=== PATIENT | male | born 1965 | race Caucasian/White ===

== ENCOUNTER 2023-01-19 11:38 | Emergency (ER) | payer OTHER, SELFPAY ==
--- NOTE | ~2023-01-19 | CT_ITS ---
EXAMINATION: CT ABDOMEN AND PELVIS WITH CONTRAST CLINICAL INFORMATION: Lower abdominal TTP > right lower quadrant. COMPARISON: None available. TECHNIQUE: Multidetector volumetric images were obtained from the superior aspect of the liver through the pubic symphysis following administration 85 mL of Omnipaque 350 intravenous contrast. Sagittal and coronal reformatted images were obtained on the technologist's workstation. Oral Contrast: No. This CT examination was performed using dose optimization techniques as appropriate, variously including the following: *Automated exposure control. *Adjustment of mA and/or kV according to patient size (this includes techniques or standardized protocols for targeted exams where dose is matched to indication/reason for exam; i.e. extremities or head). *Use of iterative reconstruction technique. DLP: 625 mGy-cm FINDINGS: LUNG BASES: Minimal dependent atelectasis. Calcific atherosclerosis is noted in the coronary arteries. LIVER, GALLBLADDER, AND BILIARY TREE: The liver is normal in size, shape, and attenuation. No focal hepatic lesion or biliary ductal dilatation is present. The gallbladder is unremarkable with no evidence of radiopaque gallstones, gallbladder wall thickening, or obvious pericholecystic inflammatory changes. PANCREAS: Unremarkable. SPLEEN: Unremarkable. ADRENAL GLANDS: Unremarkable. KIDNEYS AND URETERS: The kidneys are normal in size, shape, and attenuation. No hydronephrosis, hydroureter, or calculi seen. No perinephric stranding. Multiple bilateral renal cysts are noted, measuring up to lower pole of the left kidney with an attenuation value of 2 Hounsfield units. No suspicious renal lesions are identified. BLADDER: Bladder wall is thickened diffusely. No calcifications. GASTROINTESTINAL TRACT: Stomach, small bowel, and colon are normal in caliber. No bowel wall thickening or surrounding inflammatory changes. Appendix is normal. No intraperitoneal free fluid or free air. ABDOMINAL WALL: There is a small amount of fluid in the left inguinal canal with surrounding fat stranding, extending along the left vas deferens to the level of the bladder. No appreciable inguinal or femoral hernia. There is a small fat-containing ventral abdominal incisional hernia in the supraumbilical region without bowel involvement. LYMPH NODES: Normal. VASCULAR: Unremarkable. PELVIC VISCERA: Prostate gland is diminutive, likely surgically absent. An implantable reservoir is present in the anterior aspect of the lower pelvis, extending distally along the right inguinal canal, potentially corresponding to a penile pump. OSSEOUS STRUCTURES: Bilateral L5 pars defects with grade 1 anterolisthesis of L4 on L5 and [id number] degenerative disc disease. More mild degenerative disc disease in the lower thoracic spine. Mild osteoarthritis in the hips. CT/CT abdomen pelvis w IV con IMPRESSION: 1. Normal appendix. 2. Small amount of fluid in the left inguinal canal with surrounding fat stranding. This is of uncertain etiology, though could correspond to an inflammatory or infectious process. No appreciable inguinal or femoral hernia. 3. Diffuse bladder wall thickening. Consider correlation with urinalysis. 4. Bilateral L5 pars defects with grade 1 anterolisthesis of L5 on S1. 5. Small fat-containing ventral abdominal incisional hernia. Fleischner guidelines were followed.
[2023-01-19 12:26] VITALS: BP 135/85; PULSE 75; RESP 18; TEMP 36.6; O2SAT 98; BMI 32.1
--- NOTE | 2023-01-19 12:26 | ED_ITS ---
HPI - Abdominal Pain General Chief Complaint: Abdominal Pain <QASIM Vazquez - Last Filed: 01/19/23 12:30> Stated Complaint: Low Abdominal Pain <QASIM Vazquez - Last Filed: 01/19/23 12:30> Time Seen by Provider: 01/19/23 18:16 <QASIM Vazquez - Last Filed: 01/19/23 12:30> Source: patient <Radha Ashley MD - Last Filed: 01/19/23 20:43> Mode of arrival: ambulatory <Radha Ashley MD - Last Filed: 01/19/23 20:43> History of Present Illness HPI narrative: 57-year-old male who presents with lower abdominal discomfort the location of his hernia repair that he underwent in November 26 of this year. He denies any associated difficulty with urination, denies any fevers or chills, nausea or vomiting and denies any obstipation. This discomfort has been ongoing for 2 months. He denies any unexplained weight loss. <Radha Ashley MD - Last Filed: 01/19/23 20:43> Related Data Allergies/Adverse Reactions: Allergies Allergy/AdvReac Type Severity Reaction Status Date / Time No Known Allergies Allergy Verified 01/19/23 12:29 <QASIM Vazquez - Last Filed: 01/19/23 12:30> Review of Systems Review of Systems Pertinent positives and negatives as stated in HPI <Radha Ashley MD - Last Filed: 01/19/23 20:43> PMFSH Past Medical History Source: nursing notes reviewed <Radha Ashley MD - Last Filed: 01/19/23 20:43> Social History Social History: Social History Alcohol intake: never Smoked in Last 30 Days: No Use of substances other than those prescribed or required for medical reasons: No Advance Directives: No Advance Directives Information Provided: No <QASIM Vazquez - Last Filed: 01/19/23 12:30> Physical Exam ED Vital Signs: Vital Signs - 24 hr 01/19/23 12:26 01/19/23 18:19 Temperature 97.8 F Pulse Rate 75 67 Respiratory Rate 18 16 Blood Pressure 135/85 157/88 H Pulse Oximetry 98 99 Oxygen Delivery Method Room Air Room Air BMI result Body Mass Index 32.1 <QASIM Vazquez - Last Filed: 01/19/23 12:30> Vital Signs - 24 hr 01/19/23 12:26 01/19/23 18:19 Temperature 97.8 F Pulse Rate 75 67 Respiratory Rate 18 16 Blood Pressure 135/85 157/88 H Pulse Oximetry 98 99 Oxygen Delivery Method Room Air Room Air BMI result Body Mass Index 32.1 VITAL SIGNS: Reviewed. GENERAL: Well developed, well nourished, in no acute distress. HEAD: Normocephalic/atraumatic EYES: PERRLA, EOMI LUNGS: Normal breath sounds. No adventitious sounds or accessory muscle use. SpO2<99> CARDIOVASCULAR: Regular rate and rhythm without noted murmurs ABDOMEN: Soft, non-tender, non-distended with bowel sounds, there is no abnormal mass noted, incision appears to be completely healed without evidence of marian thema or induration, no over riding fluctuance to suggest a seroma. MUSCULOSKELETAL: No tenderness, deformities, or effusions noted on gross inspection. EXTREMITIES: No cyanosis, clubbing or edema. SKIN: Inspection of the skin reveals no rashes NEUROLOGIC: Alert and oriented x 4. Strength and sensation to light touch were grossly intact x 4. <Radha Ashley MD - Last Filed: 01/19/23 20:43> Course Course Course Narrative: RME: 57yo M w/PMHx prostate CA, A.fib, triple bypass, c/o lower abdominal pain radiating to b/l testicles and low back x3 mos. Admits pain has been worsening. Denies fever, N/V/D Abdomen soft w/lower ttp >RLQ. Labs, UA, CT/AP ordered Full HPI, ROS and PE to be performed by primary ED provider. <QASIM Vazquez - Last Filed: 01/19/23 12:30> Medical Decision Making Medical Decision Making MDM Narrative: 57-year-old male who presents with 2 months of lower abdominal discomfort without infectious/obstructive symptoms. No explained weight loss but he does have a remote history of prostate CA. he denies any urinary symptoms and on review of all investigations my interpretation is this patient likely has discomfort associated with scarring. Will follow-up on urinalysis to ensure no evidence of UTI. 1942: Still awaiting CT scan of abdomen and pelvis, patient wishes to be d ischarged is otherwise hemodynamically stable. Urinalysis has not been sent down and CT scan reads are delayed. Patient is stable for discharge to home and will follow-up on urinalysis and CT scan and if there are any acute findings will contact the patient. <Radha Ashley MD - Last Filed: 01/19/23 20:43> Differential Diagnosis Please see the discussion above <Radha Ashley MD - Last Filed: 01/19/23 20:43> Lab Data And please see the discussion above <Radha Ashley MD - Last Filed: 01/19/23 20:43> Result Diagrams: 01/19/23 15:48 01/19/23 15:48 <QASIM Vazquez - Last Filed: 01/19/23 12:30> Labs: Lab Results 01/19/23 01/19/23 01/19/23 Range/Units 15:48 15:48 19:47 WBC 10.3 (4.8-10.8) X10*3/uL RBC 4.40 L (4.60-5.80) X10*6/uL Hgb 14.1 (14.0-18.0) g/dl Hct 42.1 (42.0-52.0) % MCV 95.7 (80.0-98.0) fL MCH 32.0 (27.0-33.0) pg MCHC 33.5 (31.0-36.0) g/dl RDW 13.2 (11.0-16.0) % Plt Count 306 (160-400) X10*3/uL MPV 9.5 (9.4-12.4) fL Immature Gran % (Auto) 0.3 (0.0-0.4) % Neut % (Auto) 66.2 (45-73) % Lymph % (Auto) 22.2 (20-40) % Republic % (Auto) 8.9 (2-11) % Eos % (Auto) 2.1 (0-4) % Baso % (Auto) 0.3 (0-2) % Lymph # (Auto) 2.3 (1.2-4.9) X10*3/uL Republic # (Auto) 0.9 (0.1-1.2) X10*3/uL Eos # (Auto) 0.2 (0.0-0.4) X10*3/uL Baso # (Auto) 0.0 (0.0-0.2) X10*3/uL Abs Immat Gran (auto) 0.03 (0.00-0.03) X10*3/uL Absolute Neuts (auto) 6.8 (2.0-8.3) x10*3/uL Absolute Nucleated RBC 0.000 (0.0-0.012) X10*3/uL Nucleated RBC % (auto) 0.0 (0.0-0.2) /100WBC Sodium 143 (135-145) mmol/L Potassium 4.6 (3.3-5.1) mmol/L Chloride 109 H (96-108) mmol/L Carbon Dioxide 27 (22-29) mmol/L Anion Gap 12 (12-20) BUN 14 (9-16) mg/dL Creatinine 0.90 (0.5-1.4) mg/dL Estim Creat Clear Calc 110.7 Estimated GFR > 60 Random Glucose 97 (60-115) mg/dL Calcium 9.7 (8.4-10.2) mg/dL Magnesium 1.9 (1.6-2.6) mg/dL Total Bilirubin 0.5 (0.0-1.0) mg/dL Direct Bilirubin 0.2 (0.0-0.5) mg/dL AST 14 (5-37) U/L ALT 12 (0-40) U/L Alkaline Phosphatase 55 (39-117) U/L Total Protein 6.8 (6.5-8.0) g/dL Albumin 4.4 (3.5-5.0) g/dL Lipase 13 (8-78) U/L Urine Color Yellow Urine Appearance Clear Urine pH 6.0 (5.0-9.0) Ur Specific [place] >= 1.030 H (1.005-1.025) Urine Protein Negative (Neg-Trace) mg/dL Urine Glucose (UA) Negative (Negative) mg/dL Urine Ketones Negative (Negative) mg/dL Urine Blood Moderate (2+) H (Negative) Urine Nitrite Negative (Negative) Ur Leukocyte Esterase Negative (Negative) Urine RBC 6-10 H (0-2) /HPF Urine WBC 0-5 (0-5) /HPF Ur Squamous Epith Cells 0-2 (0-2) /HPF Urine Bacteria None Seen (None Seen) Hyaline Casts 0-2 (0-2) /LPF <QASIM Vazquez - Last Filed: 01/19/23 12:30> Lab Results 01/19/23 01/19/23 01/19/23 Range/Units 15:48 15:48 19:47 WBC 10.3 (4.8-10.8) X10*3/uL RBC 4.40 L (4.60-5.80) X10*6/uL Hgb 14.1 (14.0-18.0) g/dl Hct 42.1 (42.0-52.0) % MCV 95.7 (80.0-98.0) fL MCH 32.0 (27.0-33.0) pg MCHC 33.5 (31.0-36.0) g/dl RDW 13.2 (11.0-16.0) % Plt Count 306 (160-400) X10*3/uL MPV 9.5 (9.4-12.4) fL Immature Gran % (Auto) 0.3 (0.0-0.4) % Neut % (Auto) 66.2 (45-73) % Lymph % (Auto) 22.2 (20-40) % Republic % (Auto) 8.9 (2-11) % Eos % (Auto) 2.1 (0-4) % Baso % (Auto) 0.3 (0-2) % Lymph # (Auto) 2.3 (1.2-4.9) X10*3/uL Republic # (Auto) 0.9 (0.1-1.2) X10*3/uL Eos # (Auto) 0.2 (0.0-0.4) X10*3/uL Baso # (Auto) 0.0 (0.0-0.2) X10*3/uL Abs Immat Gran (auto) 0.03 (0.00-0.03) X10*3/uL Absolute Neuts (auto) 6.8 (2.0-8.3) x10*3/uL Absolute Nucleated RBC 0.000 (0.0-0.012) X10*3/uL Nucleated RBC % (auto) 0.0 (0.0-0.2) /100WBC Sodium 143 (135-145) mmol/L Potassium 4.6 (3.3-5.1) mmol/L Chloride 109 H (96-108) mmol/L Carbon Dioxide 27 (22-29) mmol/L Anion Gap 12 (12-20) BUN 14 (9-16) mg/dL Creatinine 0.90 (0.5-1.4) mg/dL Estim Creat Clear Calc 110.7 Estimated GFR > 60 Random Glucose 97 (60-115) mg/dL Calcium 9.7 (8.4-10.2) mg/dL Magnesium 1.9 (1.6-2.6) mg/dL Total Bilirubin 0.5 (0.0-1.0) mg/dL Direct Bilirubin 0.2 (0.0-0.5) mg/dL AST 14 (5-37) U/L ALT 12 (0-40) U/L Alkaline Phosphatase 55 (39-117) U/L Total Protein 6.8 (6.5-8.0) g/dL Albumin 4.4 (3.5-5.0) g/dL Lipase 13 (8-78) U/L Urine Color Yellow Urine Appearance Clear Urine pH 6.0 (5.0-9.0) Ur Specific [place] >= 1.030 H (1.005-1.025) Urine Protein Negative (Neg-Trace) mg/dL Urine Glucose (UA) Negative (Negative) mg/dL Urine Ketones Negative (Negative) mg/dL Urine Blood Moderate (2+) H (Negative) Urine Nitrite Negative (Negative) Ur Leukocyte Esterase Negative (Negative) Urine RBC 6-10 H (0-2) /HPF Urine WBC 0-5 (0-5) /HPF Ur Squamous Epith Cells 0-2 (0-2) /HPF Urine Bacteria None Seen (None Seen) Hyaline Casts 0-2 (0-2) /LPF <Radha Ashley MD - Last Filed: 01/19/23 20:43> Radiology Impression Radiologist Impression: My interpretation is in agreement with radiology's impression of the imaging studies. A stranding is noted and patient was instructed to follow-up with his surgeon. <Radha Ashley MD - Last Filed: 01/19/23 20:43> Medications Administered Discontinued Medications Generic Name Dose Route Start Last Admin Trade Name Freq PRN Reason Stop Dose Admin Acetaminophen 975 mg 01/19/23 19:03 01/19/23 19:44 Acetaminophen 325 Mg Tablet PO 01/19/23 19:04 975 mg ONCE ONE Administration Ibuprofen 400 mg 01/19/23 19:03 01/19/23 19:45 Ibuprofen 400 Mg Tablet PO 01/19/23 19:04 400 mg ONCE ONE Administration Iohexol 100 ml 01/19/23 18:34 01/19/23 18:34 Iohexol 350 Mg/Ml 100 Ml Infus..Btl IV 01/19/23 18:35 85 ml ONCE ONE Administration Lidocaine 1 patch 01/19/23 19:03 01/19/23 19:45 Lidocaine 4 % Patch Adh..Patch TRANSDERMA 01/19/23 19:04 1 patch ONCE ONE Administration Protocol <QASIM Vazquez - Last Filed: 01/19/23 12:30> Medications Administered Discontinued Medications Generic Name Dose Route Start Last Admin Trade Name Freq PRN Reason Stop Dose Admin Acetaminophen 975 mg 01/19/23 19:03 01/19/23 19:44 Acetaminophen 325 Mg Tablet PO 01/19/23 19:04 975 mg ONCE ONE Administration Ibuprofen 400 mg 01/19/23 19:03 01/19/23 19:45 Ibuprofen 400 Mg Tablet PO 01/19/23 19:04 400 mg ONCE ONE Administration Iohexol 100 ml 01/19/23 18:34 01/19/23 18:34 Iohexol 350 Mg/Ml 100 Ml Infus..Btl IV 01/19/23 18:35 85 ml ONCE ONE Administration Lidocaine 1 patch 01/19/23 19:03 01/19/23 19:45 Lidocaine 4 % Patch Adh..Patch TRANSDERMA 01/19/23 19:04 1 patch ONCE ONE Administration Protocol <Radha Ashley MD - Last Filed: 01/19/23 20:43> Discharge Plan Discharge Clinical Impression: Chronic abdominal pain <QASIM Vazquez - Last Filed: 01/19/23 12:30> Patient Disposition: Home, Self-Care <QASIM Vazquez - Last Filed: 01/19/23 12:30> Instructions: Abdominal Pain (ED) <QASIM Vazquez - Last Filed: 01/19/23 12:30> Additional Instructions: 1. Recommend [id number] Tylenol/ibuprofen as needed for pain con trol. May consider lidocaine patch or heating pad for additional symptom relief. 2. Please follow-up with your general surgeon who did the hernia repair at [facility] in [place]. Return to the ER for any worsening symptoms such as fever, chills, inability to tolerate food or water, or inability to pass gas. <QASIM Vazquez - Last Filed: 01/19/23 12:30> Referrals: Gopi Gómez MD [Primary Care Provider] - <QASIM Vazquez - Last Filed: 01/19/23 12:30> Interventions: ED Discharge Assessment Last Done: 01/19/23 19:57 <QASIM Vazquez - Last Filed: 01/19/23 12:30> Discharge Date/Time: 01/19/23 19:58 <QASIM Vazquez - Last Filed: 01/19/23 12:30>
[2023-01-19 15:53] LABS: MANUAL DIFF FLAG NO
[2023-01-19 15:55] LABS: Basophils Percent Auto 0.3 % (0-2); Eosinophils Absolute Auto 0.2 X10*3/uL (0.0-0.4); Eosinophils Percent Auto 2.1 % (0-4); Hematocrit 42.1 % (42.0-52.0); Hemoglobin 14.1 g/dl (14.0-18.0); Imm Gran Abs Auto 0.03 X10*3/uL (0.00-0.03); Imm Gran Pct Auto 0.3 % (0.0-0.4); Lymphocytes Absolute Auto 2.3 X10*3/uL (1.2-4.9); Lymphocytes Percent Auto 22.2 % (20-40); Mean Corpuscular HGB Conc 33.5 g/dl (31.0-36.0); Mean Corpuscular Volume 95.7 fL (80.0-98.0); Mean Platelet Volume 9.5 fL (9.4-12.4); Monocytes Absolute Auto 0.9 X10*3/uL (0.1-1.2); Monocytes Percent Auto 8.9 % (2-11); Neutrophils Absolute Auto 6.8 x10*3/uL (2.0-8.3); Neutrophils Percent Auto 66.2 % (45-73); Platelet Count 306 X10*3/uL (160-400); Red Cell Distribution Width 13.2 % (11.0-16.0); White Blood Count 10.3 X10*3/uL (4.8-10.8)
[2023-01-19 16:09] LABS: Alanine Aminotransferase 12 U/L (0-40); Albumin Level 4.4 g/dL (3.5-5.0); Alkaline Phosphatase 55 U/L (39-117); Anion Gap 12 (12-20); Aspartate Amino Transferase 14 U/L (5-37); Bilirubin Direct 0.2 mg/dL (0.0-0.5); Bilirubin Total 0.5 mg/dL (0.0-1.0); Blood Urea Nitrogen 14 mg/dL (9-16); Calcium 9.7 mg/dL (8.4-10.2); Carbon Dioxide 27 mmol/L (22-29); Chloride 109 mmol/L (96-108); Creatinine Clr Calc Pharmacy 110.7; Estimated Glomerular Filt Rate > 60; Glucose Random 97 mg/dL (60-115); Lipase 13 U/L (8-78); Magnesium 1.9 mg/dL (1.6-2.6); Potassium 4.6 mmol/L (3.3-5.1); Sodium 143 mmol/L (135-145); Total Protein 6.8 g/dL (6.5-8.0)
[2023-01-19 18:19] VITALS: BP 157/88; PULSE 67; RESP 16; O2SAT 99
[2023-01-19] MEDS: iohexoL 350 MG/ML 100 ML INFUS..BTL IV (18:34)
[2023-01-19] MEDS: Acetaminophen 325 MG TABLET 975 MG PO (19:44)
[2023-01-19] MEDS: Lidocaine 4 % Patch ADH..PATCH 1 PATCH TRANSDERMA (19:45)
[2023-01-19] MEDS: Ibuprofen 400 MG TABLET PO (19:45)
--- NOTE | 2023-01-19 19:54 | PC.NURSE ---
Took over care from SALAS Howard at 7:00pm , pt requesting go home, medicated per Nov, notified provider, Urine sent, pt discharged home, Reviewed discharge instructions with pt, pt verbalized understanding, Iv removed at discharge, no sob or chest pain, no sign of distress . pt ambulating with a steady gait.
[2023-01-19 20:04] LABS: Appearance Urine Clear; Color Urine Yellow; Glucose Urine UA Negative (Negative); Leukocyte Esterase Urine Negative (Negative); Nitrite Urine Negative (Negative); Specific Gravity - Urine >= 1.030 (1.005-1.025); UMIC TRIGGER UACC YES; Urine Blood Moderate (2+) (Negative); Urine Ketones Negative (Negative); Urine Protein Negative (Neg-Trace)
[2023-01-19 20:06] LABS: Bacteria Urine None Seen (None Seen); Hyaline Casts Urine 0-2 /LPF (0-2); Squamous Epithelial Cell Urine 0-2 /HPF (0-2); WBC Urine 0-5 /HPF (0-5)
== END 2023-01-19 19:58 | disposition home or self-care (01) ==
PROVIDERS: Physician Assistant; Emergency Provider Student in an Organized Health Care Education/Training Program; PCP Internal Medicine
DX: G89.29 Other chronic pain (principal); R10.30 Lower abdominal pain, unspecified; Z85.46 Personal history of malignant neoplasm of prostate
CPT/HCPCS: 36415; 74177; 80048; 80076; 81001; 81003; 83690; 83735; 85025; 99284; Q9967